=== PATIENT | female | born 1995 ===

== ENCOUNTER → 2016-02-10 | Outpatient (CLI) | payer BC ==
--- NOTE | 2016-02-11 11:54 | CODING QUERY NO DIAGNOSIS ---
: 96 TREATMENT RENDERED WITHOUT A DIAGNOSIS To promote full compliance with coding requirements relating to patient care, physician participation is requested in all cases of gold wheel blocker and polisher uncertainty. Please assist us with providing a diagnosis/symptom for the test(s) below: A diagnosis/symptom was not documented on your Order. A valid diagnosis/symptom is required to bill all insurances. Please remember that we are unable to code a diagnosis of rule out, probable, possible, questionable, or suspected. Tests that require a diagnosis: * URINE CULTURE CLEAN DOS: 02/10/16 DIAGNOSIS: Provider Signature: Date: Thank you Jennifer Agarwal [facility] Once completed, please kindly fax back to [phone] For questions please call [phone]
== END | disposition home or self-care (01) ==
LOC: C.LABSPEC 18:10
PROVIDERS: ATTEND Nurse Practitioner Family
DX: N39.0 Urinary tract infection, site not specified (principal)